=== PATIENT | female | born 1970 | race Caucasian/White ===

== ENCOUNTER 2022-03-13 12:13 | Emergency (ER) | payer OTHER ==
[~2022-03-13] VITALS: Ht 167.6 cm; Wt 63.5 kg
[2022-03-13 15:10] LABS: ALBUMIN 3.4 g/dL (3.4-5.0); BILIRUBIN - TOTAL 0.4 mg/dL (0.2-1.0); BUN/CREAT RATIO (CALC) 15.8 RATIO; CREATININE 0.76 mg/dL (0.51-0.95); GLOBULIN (CALCULATION) 3.8 g/dL; POTASSIUM 4.1 mmol/L (3.5-5.1); TOTAL PROTEIN 7.2 g/dL (6.4-8.2)
[2022-03-13 16:12] LABS: BASOPHIL 0.6 % (0-2); EOSINOPHIL 2.5 % (0-5); HCT 48.3 % (37.0-47.0); HGB 15.6 g/dl (12.5-16.0); LYMPHOCYTE 23.7 % (15-48); MCHC 32.3 g/dL (32.0-36.0); MCV 99.2 fL (78.0-100.0); MONOCYTE 8.1 % (0-12); NEUTROPHIL 64.7 % (41-80); NRBC 0; PLT 312 K/uL (150-400); RBC 4.87 M/uL (4.20-5.40); RDW 12.9 % (11.5-14.0); WBC 11.3 K/uL (4.0-10.5)
[2022-03-13] MEDS ORDERED: ULTRAM50 MG PO (18:43)
== END 2022-03-13 18:57 | disposition home or self-care (01) ==
LOC: FER 12:13
PROVIDERS: Emergency Medicine
DX: S82.141A Displaced bicondylar fracture of right tibia, initial encounter for closed fracture (principal); S00.03XA Contusion of scalp, initial encounter; F17.210 Nicotine dependence, cigarettes, uncomplicated; Z20.822 Contact with and (suspected) exposure to COVID-19; W10.9XXA Fall (on) (from) unspecified stairs and steps, initial encounter
CPT/HCPCS: 36415; 70450; 73564; 73700; 80053; 85025; J1170; J1885; J2405; J7030; U0002